=== PATIENT | male | born 1995 | race Caucasian/White ===

== ENCOUNTER 2021-04-24 13:59 | Outpatient (REF) | payer BC, SELFPAY | END 2021-04-24 14:00 | disposition home or self-care (01) | LOC: HO.LNP 13:59 | PROVIDERS: Visit Provider Internal Medicine | DX: Z20.822 Contact with and (suspected) exposure to COVID-19 (principal) | CPT/HCPCS: U0003; U0005 ==

== ENCOUNTER → 2022-06-20 08:27 | Outpatient (BNVA) | payer OTHER, SELFPAY | PROVIDERS: Visit Provider Physician Assistant | DX: K42.9 Umbilical hernia without obstruction or gangrene (principal) | CPT/HCPCS: 99203 ==

== ENCOUNTER → 2022-06-30 08:28 | Outpatient (BNVA) | payer OTHER, SELFPAY | PROVIDERS: Visit Provider Surgery | DX: K42.9 Umbilical hernia without obstruction or gangrene (principal); F17.210 Nicotine dependence, cigarettes, uncomplicated | CPT/HCPCS: 99202 ==

== ENCOUNTER → 2022-07-18 08:15 | Outpatient (BNVA) | payer OTHER, SELFPAY | PROVIDERS: Visit Provider Surgery | DX: K42.9 Umbilical hernia without obstruction or gangrene (principal); J20.9 Acute bronchitis, unspecified; F17.210 Nicotine dependence, cigarettes, uncomplicated | CPT/HCPCS: 99212 ==

== ENCOUNTER 2022-08-14 05:52 | Day surgery (SDC) | payer OTHER, SELFPAY ==
[2022-08-11 13:39] VITALS: BMI 33.7
--- NOTE | 2022-08-13 09:13 | HO.ANESPROP2 ---
Documented by User: Yenny Ernandez NP 08/13/22 09:13 HPI - Anesthesia Eval Consult details Narrative: 26yo M for Hernia Repair Umbilical Laparoscopic, with mesh possible open PMFSH Active Problems Active Problems: All Active Problems (Updated 06/30/22 @ 09:05 by Lakhwinder Taylor MD) Nicotine use (Acute) Umbilical hernia (Acute) Acute bronchitis (Acute) Family History Family History Other Breast cancer Lung cancer Skin cancer Surgical History Surgical History History of wisdom tooth extraction Social History Social History Alcohol intake: current Alcohol intake frequency: a few times a week Alcohol type: beer Patient Tobacco Use Status: Current everyday Tobacco user Tobacco use type: Cigarette Cigarette Packs Per Day: 1 Substance Use Frequency: Occasionally Are you DNR?: No Advance Directives: No Advance Directives Information Provided: Yes Nutrition Risks: No Nutritional Risk Meds Allergies Allergy/AdvReac Type Severity Reaction Status Date / Time diphenhydramine Allergy Intermediate HYPERACTIVE Verified 07/18/22 08:23 [From BENADRYL] Exam Exam Date and Time: August 13, 2022912 Height,Weight and Vital Signs: Height 6 ft 3 in Weight 122.47 kg Assessment and Plan Assessment Anesthesia Assessment: Chart Reviewed Documented by User: Alia Fischer MD 08/14/22 08:19 PMFSH Past Medical History Functional capacity: independent ambulation Family History Family History Other Breast cancer Lung cancer Skin cancer Family history of problems with anesthesia: No Surgical History Surgical History History of wisdom tooth extraction History of Problems with Anesthesia: No Social History Social History Alcohol intake: current Alcohol intake frequency: a few times a week Alcohol type: beer Patient Tobacco Use Status: Current everyday Tobacco user Tobacco use type: Cigarette Cigarette Packs Per Day: 1 Substance Use Frequency: Occasionally Are you DNR?: No Advance Directives: No Advance Directives Information Provided: Yes Nutrition Risks: No Nutritional Risk Meds Allergies Allergy/AdvReac Type Severity Reaction Status Date / Time diphenhydramine Allergy Intermediate HYPERACTIVE Verified 07/18/22 08:23 [From BENADRYL] Exam Airway Mallampati Class: II TM Dist: >3cm Neck ROM: Full Heart: RRR Lungs: CTA Assessment and Plan Final Anesthetic Review Family History of Problems with Anesthesia: No History of Problems with Anesthesia: No ASA Class: II and III Final Preanesthetic Review: No Changes in Pt Med Stat, Meds/Allgs Chart Reviewed, Consent Obtained/Reviewed and Anes Risks/Benef Reviewed Patient Risk: Intermediate Procedure Risk: Low Anesthetic Plan Anesthetic Plan: GA Disposition: Standard PACU
--- NOTE | 2022-08-14 07:54 | PC.NURSE ---
patient was covid positive x 3 weeks ago. negative PCR from 08/12/22 in chart.
[2022-08-14 07:56] VITALS: BP 149/95; PULSE 86; RESP 18; TEMP 36.6; O2SAT 98
--- NOTE | 2022-08-14 08:02 | MHC.SHP ---
Pre-Procedural Eval Section A Date of Service: 08/14/22 The patient is an INPATIENT: No The History & Physical has been completed within 30 days and I have reviewed it.: Yes Section B Chief Complaint: hernia Allergies: Allergies Allergy/AdvReac Type Severity Reaction Status Date / Time diphenhydramine Allergy Intermediate HYPERACTIVE Verified 07/18/22 08:23 [From KODY] Plan I have reviewed the history and physical and performed a pertinent physical examination on my patient. No changes have occurred unless specified.
--- NOTE | 2022-08-14 08:04 | P.OP_ITS ---
Operative Note Operative Note Date of Service: 08/14/22 Narrative: Preop diagnosis: [Umbilical hernia] Postop diagnosis: [Same and] Procedure: [] Surgeon: Lakhwinder Taylor MD Assist: [] Anesthesia: [GET] Estimated blood loss: [3cc] Specimen: [] Intraoperative findings: [] Indications: [The patient is a 26-year-old gentleman who denies any significant past medical history who presented with an umbilical hernia that occurred after lifting a 100+ lb object at work. After reviewing options including a 2nd opinion and continued observation, we discussed laparoscopic or open repair possibly with mesh. We discussed the options of laparoscopic and open ventral/umbilical hernia repair versus the option of continued observation or 2nd opinion. The patient's questions seemed to be satisfactorily answered. Activity restrictions, specifically the patient cannot lift more than 20 lb for the next 4 weeks, the need for light duty, the fact that the patient is not disabled and can perform light duty was all discussed and apparently understood. The need to communicate with his employer given that this is a work related/workman's comp injury was also disclosed. The inherent risks to hernia repair including bleeding, urinary retention, infection, bowel injury, effects of general anesthesia, seroma, and hernia recurrence, especially in the setting of increasing weight gain/obesity were all discussed at length in the patient's questions seemed to be answered. The possible need for seroma drainage or reoperation in the event of a complication such as mesh infection, bleeding/hematoma or symptomatic/infected seroma were also reviewed.] Procedure: [The patient was identified by myself in the preop holding area in the operating room. His abdominal hair had been clipped by staff and evaluation to assess for small infections/pustules was performed. None were noted. 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 He was placed supine on the table, induced in general endotracheal anesthesia administered with excellent effect. Next his abdomen was widely prepped and draped in the usual manner for surgery using chlorhexidine. An Ioban drape was utilized. I accessed the patie nt's abdomen in the left subcostal area and after pre emptied local, a stab incision was made have Veress needle inserted without incident, a drop test performed and a pneumoperitoneum to 15 mmHg obtained. Opening pressure was 7 mmHg. The abdomen was then next accessed via a 5 mm trocar using Optiview surgical technique in the left anterior axillary line at the level of the umbilicus. The 30 degree, 5 mm laparoscopic showed no evidence of injury from the Veress needle so was removed, the skin incision expanded in a 12 mm port placed in left subcostal area. Again using direct laparoscopic vision, 5 mm was placed in the left lower quadrant. The abdomen was explored in an umbilical hernia being viable properitoneal fat was found. The electrocautery on a setting of 25 w was used to dissect the preperitoneal fat down to the posterior sheath and fascia. The hernia at the umbilicus was reduced and the fascia closed with an 0 V-lock suture. Next, an 4 x 6 in echo mesh was inserted, deployed, the pneumoperitoneum decreased to 9 mmHg and absorbable tacks used to secure the mesh in place. After inspecting for hemostasis, the left upper quadrant 12 mm port was closed with an 0 Polysorb suture and skin closed with 4-0 Monocryl subcuticular sutures. Abdomen was washed and dried, Steri-Strips and a dressing applied a cotton ball and Tegaderm were placed in the umbilicus. Patient tolerated the procedure well was sent extubated the recovery in stable condition. All sponge instrument counts were correct At the patient's request I contacted his father, Jordan, at [phone] to apprise him of the operation, restrictions, medications and follow-up. His questions seemed to be satisfactorily answered.
[2022-08-14] MEDS: Lactated Ringers 500 ML 50 ML IV (08:15)
--- NOTE | 2022-08-14 08:27 | PC.NURSE ---
Dr. garcia assessed patient's abdomen per author's request to assess scratch to upper left and ingrown hair to upper right. closed. no redness surrounding either. surgeon stated okay to proceed.
--- NOTE | 2022-08-14 09:37 | HO.ANESPROP2 ---
[facility] Active Problems Active Problems: All Active Problems (Updated 06/30/22 @ 09:05 by Lakhwinder Taylor MD) Acute bronchitis (Acute) Umbilical hernia (Acute) Nicotine use (Acute) Past Medical History Medical History Smoker Functional capacity: independent ambulation Family History Family History Other Breast cancer Lung cancer Skin cancer Family history of problems with anesthesia: No Surgical History Surgical History History of wisdom tooth extraction History of Problems with Anesthesia: No Social History Social History Alcohol intake: current Alcohol intake frequency: a few times a week Alcohol type: beer Patient Tobacco Use Status: Current everyday Tobacco user Tobacco use type: Cigarette Cigarette Packs Per Day: 1 Substance Use Frequency: Occasionally Are you DNR?: No Advance Directives: No Advance Directives Information Provided: Yes Nutrition Risks: No Nutritional Risk Meds Allergies Allergy/AdvReac Type Severity Reaction Status Date / Time diphenhydramine Allergy Intermediate HYPERACTIVE Verified 08/14/22 08:32 [From BENADRYL] Active Medications: Current Medications Albuterol Sulfate (Albuterol Sulfate (0.083%) 2.5 Mg/3 Ml Vial.Neb) 2.5 mg INHALE ONCE PRN PRN Reason: Shortness of Breath/Wheezing Lactated Ringer's (Lr) 500 mls @ 50 mls/hr IV .Q10H SADIE Stop: 08/14/22 17:59 Last Admin: 08/14/22 08:15 Dose: 50 mls/hr Exam Exam Date and Time: August 14, 2022 0937 Height,Weight and Vital Signs: Height 6 ft 3 in Weight 122.47 kg Last Vital Signs Temp 97.9 F 08/14/22 07:56 Pulse 86 08/14/22 07:56 Resp 18 08/14/22 07:56 BP 149/95 H 08/14/22 07:56 Pulse Ox 98 08/14/22 07:56 O2 Del Method 08/14/22 07:56 Airway Mallampati Class: II TM Dist: >3cm Neck ROM: Full Heart: RRR Lungs: CTA Assessment and Plan Final Anesthetic Review Family History of Problems with Anesthesia: No History of Problems with Anesthesia: No NPO: Yes ASA Class: II Final Preanesthetic Review: No Changes in Pt Med Stat, Meds/Allgs Chart Reviewed, Consent Obtained/Reviewed and Anes Risks/Benef Reviewed Patient Risk: Low Procedure Risk: Intermediate Anesthetic Plan Anesthetic Plan: GA Disposition: Standard PACU
[2022-08-14 10:50] VITALS: BP 122/82; PULSE 111; RESP 16; TEMP 36.2; O2SAT 96
[2022-08-14 10:55] VITALS: BP 105/58; PULSE 99; RESP 20; O2SAT 98
[2022-08-14 11:00] VITALS: BP 160/94; PULSE 102; RESP 22; O2SAT 98
--- NOTE | 2022-08-14 11:03 | HO.POSTANES ---
Post Anesthesia Evaluation Post Anesthesia Evaluation Vital Signs: Vital Signs Temp Pulse Resp BP Pulse Ox O2 Del Method 08/14/22 11:00 102 H 22 H 160/94 H 98 Room Air 08/14/22 10:55 99 20 105/58 L 98 Room Air 08/14/22 10:50 97.1 F 111 H 16 122/82 96 Room Air 08/14/22 07:56 97.9 F 86 18 149/95 H 98 Room Air Anesthesia: General Endotracheal-GETA Mental Status: Awake Pain Control: Satisfactory Nausea/Vomiting: None Hydration: Adequate Anesthesia-Related Issues: No Anes. Related Issues
[2022-08-14 11:05] VITALS: BP 139/80; PULSE 104; RESP 20; O2SAT 96
[2022-08-14 11:20] VITALS: BP 159/96; PULSE 103; RESP 18; TEMP 36.6; O2SAT 97
== END 2022-08-14 11:59 | disposition home or self-care (01) ==
PROVIDERS: Visit Provider Surgery
PROC: 0WQF4ZZ Repair Abdominal Wall, Percutaneous Endoscopic Approach (ICD-10-PCS; CPT 49652; principal; 2022-08-14 09:10)
DX: K42.9 Umbilical hernia without obstruction or gangrene (principal); J20.9 Acute bronchitis, unspecified; Z79.899 Other long term (current) drug therapy; Z88.8 Allergy status to other drugs, medicaments and biological substances; F17.210 Nicotine dependence, cigarettes, uncomplicated
CPT/HCPCS: 49652; C1781; J0131; J0690; J1100; J1885; J2250; J2405; J2795; J3010